=== PATIENT | male | born 1950 | race Caucasian/White ===

== ENCOUNTER 2018-03-23 07:08 | Day surgery (SDC) | payer OTHER ==
[2018-03-22 10:46] LABS: HEMATOCRIT 44.1 % (42.0-54.0); HEMOGLOBIN 15.1 g/dL (13.5-17.5); MCH 30.8 pg (26.0-34.0); MCHC 34.2 g/dL (31.0-37.0); MEAN PLATELET VOLUME 11.6 fL (7.4-10.4); RBC 4.9 10x6/uL (4.20-6.10); RDW 13.4 % (11.5-14.5); WBC 5.5 10x3/uL (4.8-10.8)
[2018-03-22 10:56] LABS: ANION GAP 12.4 mmol/L (8-16); CALCIUM 8.7 mg/dL (8.5-10.1); CARBON DIOXIDE 28.3 mmol/L (21.0-32.0); CREATININE - SERUM 1.1 mg/dL (0.6-1.3); POTASSIUM - SERUM 3.7 mmol/L (3.5-5.1)
[~2018-03-23] VITALS: Ht 175.3 cm; Wt 89.4 kg
--- NOTE | ~2018-03-23 | OP ---
PATIENT NAME: DG SWIFT MEDICAL RECORD: [id number] :46 LOCATION:D.OPS ADMISSION DATE: SURGEON: FRENCH MCGARRY MD DATE OF OPERATION: 03/23/2018 PREOPERATIVE DIAGNOSES: Ascending colon polyp, complex, tattooed. POSTOPERATIVE DIAGNOSES: Ascending colon polyp, complex, tattooed with inadequate prep. PROCEDURES: 1. Total colonoscopy to cecum. 2. Polypectomy utilizing endoscopic mucosal resection. 3. Placement of endoscopic clips times 5 for hemostatic control and to reinforce the polypectomy site. SURGEON: French Mcgarry MD IT PROJECT MANAGER: None. BLOOD LOSS: Minimal. ANESTHESIA: General. COMPLICATIONS: None. The risks, possible complications, and alternatives to the procedure were explained to the patient. He elects to proceed. The discussion specifically included, but was not limited to, bleeding requiring emergency reoperation, infection, intestinal injury, intestinal perforation. OPERATIVE COURSE: In two areas in the chart, it was started this was an ascending colon polyp; in one area it was stated that this was a descending colon polyp. Indeed, this was an ascending colon polyp. DESCRIPTION OF PROCEDURE: The patient was conveyed to the operating room electively on 03/23/2018. General anesthesia was induced by anesthesia staff. The patient was placed in the Espinal position. A digital rectal examination was performed. This revealed a prostate that was symmetric without nodules and was slightly enlarged. A colonoscope was inserted through the anus. It was easily advanced to the cecum. Upon withdrawal, I irrigated and aspirated extensively. I dragged the folds. The pullback was greater than an 18-minute pullback. The polyp was identified along with its tattooed. I advanced a sclerotherapy needle. I injected Eleview to elevate the polyp. I then utilized the snare to snare the polyp off. The portions of the polyp were grasped with the forceps and brought out through the endoscope. Some additional polypoid tissue was excised in a piecemeal fashion. I then utilized the argon plasma director of global sales to ablate any residual polypoid tissue that I could not see. I had to go kind of deep on this fold and wanted to reinforce this area and also control hemostasis with a row of endoscopic clips. I deployed 6 clips, one of them did not take and was lost. The other 5 were deployed along the polypectomy line. I was very satisfied with the deployment of these clips. I then slowly withdrew the endoscope. I irrigated and aspirated extensively. A retroflexed view was obtained of the rectum. I then OPERATIVE REPORT [id number] DG SWIFT unretroflexed the scope and removed it under direct vision. I will plan for a repeat colonoscopy with argon plasma director of global sales, which we can perform in the GI lab, in 1 year. TRANSINT:[id number] Voice Confirmation ID: [id number] DOCUMENT ID: [id number] FRENCH MCGARRY MD at 1617 CC: Shun [facility] [id number] DICTATION DATE: 03/23/18 1015 [employer] [place] DEPARTMENT: 03/23/18 1234 [facility] 03/23/18 [id number] [place] [address]
[~2018-03-23 07:08] MED LIST: CRESTOR20 MG PO; GEMFIBROZIL600 MG PO; HCTZ25 MG PO; ZESTRIL40 MG PO
[2018-03-23 08:36] VITALS: BP 124/64; Ht 175.3 cm; Wt 89.4 kg
== END 2018-03-23 11:50 | disposition home or self-care (01) ==
LOC: D.OPS 07:08 → D.PAN 09:40 → D.OPS 11:50 → D.PAN 12:25
PROVIDERS: Anesthesiology
DX: D12.2 Benign neoplasm of ascending colon (principal); Z01.812 Encounter for preprocedural laboratory examination